=== PATIENT | male | born 1955 | race Caucasian/White ===

== ENCOUNTER 2017-01-01 09:52 | Emergency (ER) | payer OTHER ==
[2017-01-01 11:13] VITALS: BP 122/67
--- NOTE | 2017-01-01 11:23 | CR ---
Foot Comp Min 3V Lt HISTORY: Possible foreign body COMPARISON: None FINDINGS: No radiopaque foreign body seen. No acute fracture. Accessory navicular bone noted.
[2017-01-01] MEDS ORDERED: cefTRIAXone 1 GM Vial IM ONE (12:30)
--- NOTE | 2017-01-01 12:43 | EDM.PDOC ---
ED HPI GENERAL MEDICAL PROBLEM - General Chief Complaint: Lower Extremity Injury/Pain Stated Complaint: LEFT FOOT IS INFECTED Time Seen by Provider: 01/01/17 10:38 Source of Information: Reports: Patient History Limitations: Reports: No Limitations - History of Present Illness INITIAL COMMENTS - FREE TEXT/NARRATIVE: This patient last night was walking barefoot over some wooden pallets. Apparently some Mnire has been spread and then pallets placed on top of it. He got a splinter in his left foot. He really wasn't aware that a splinter but this morning he noticed more pain and some redness to his foot. One of his family members pulled out a large splinter from the foot. He says the redness to the side of the foot and ankle is a little bit decreased now. His last tetanus was greater than 5 years ago. - Related Data Allergies Allergy/AdvReac Type Severity Reaction Status Date / Time sulfamethoxazole Allergy Hives Verified 01/01/17 10:14 [From Bactrim] trimethoprim [From Bactrim] Allergy Hives Verified 01/01/17 10:14 Home Meds: Home Meds NK [No Known Home Meds] 01/01/17 [History] Past Medical History HEENT History: Reports: Impaired Vision Musculoskeletal History: Reports: Fracture - Infectious Disease History Infectious Disease History: Reports: Mumps Social & Family History - Tobacco Use Smoking Status *Q: Former Smoker Years of Tobacco use: 15 Packs/Tins Daily: 1 Used Tobacco, but Quit: Yes Month Tobacco Last Used: 08/11/2006 Second Hand Smoke Exposure: Yes - Caffeine Use Caffeine Use: Reports: Coffee - Recreational Drug Use Recreational Drug Use: No Review of Systems - Review of Systems Review Of Systems: ROS reveals no pertinent complaints other than HPI. ED EXAM, GENERAL - Physical Exam Exam: See Below Exam Limited By: No Limitations General Appearance: Alert, WD/WN Extremities: Other (Exam of the left foot shows a puncture wound to the sole of the foot this is generally in the area of the fifth and fourth metatarsal phalangeal joints. There is just mild erythema to the area. I do see something that looks like some lymphangitis to the medial side of the foot extending slightly above the ankle. That redness had cleared up on subsequent exams. The splinter removed from the foot is approximately 5 or 6 cm long.) Course - Vital Signs Last Recorded V/S: Last Vital Signs Temp 36.8 C 01/01/17 10:25 Pulse 57 L 01/01/17 11:12 Resp 14 01/01/17 11:12 BP 122/67 01/01/17 11:12 Pulse Ox 98 01/01/17 11:12 - Orders/Labs/Meds Meds: Medications Discontinued Medications Generic Name Dose Route Start Last Admin Trade Name Jennifer PRN Reason Stop Dose Admin Ceftriaxone Sodium 1 gm 01/01/17 12:30 01/01/17 12:32 Rocephin IM 01/01/17 12:31 1 gm ONETIME ONE Administration Lidocaine HCl 2.1 ml 01/01/17 12:29 Xylocaine-Mpf 1% INJECT 01/01/17 12:30 ONETIME ONE - Re-Assessments/Exams Free Text/Narrative Re-Assessment/Exam: 01/01/17 15:[address] Tapia the on-call surgeon was contacted that he would be unable to see the patient until late in the afternoon. I did get a hold of Dr. Abrams who came to the emergency department to see the patient. X-ray of the foot showed no obvious foreign body. Dr. Fung will put him on cephalexin 500 mg I think it's twice daily and he wants to see him to return to the emergency department at 7 AM tomorrow where he will see Dr. Tapia. The patient received 1 g of Rocephin IM. A dressing was placed over the foot. Free Text/Narrative Re-Assessment/Exam: 01/01/17 15:39 Examined his chart shows that he didn't receive a tetanus injection and that will be addressed when he returns in the morning. Departure - Departure Time of Disposition: 12:41 Disposition: Home, Self-Care 01 Condition: fair Clinical Impression: Acute foreign body of plantar aspect of foot - Discharge Information Instructions: Sliver Removal, Care After Referrals: PCP,None [Primary Care Provider] - Forms: ED Department Discharge Additional Instructions: Wash with soap and water twice daily and cover with a bandage. Take the antibiotic cephalexin or Keflex as directed by the surgeon. Return to the ER at 7 AM tomorrow. Don't eat or drink anything after midnight tonight because the surgeon may do some surgery on your foot. We'll
== END 2017-01-01 12:55 | disposition home or self-care (01) ==
LOC: JP.ED 09:52 → EDBD 09:52 → JP.ED 12:55
DX: S90.852A Superficial foreign body, left foot, initial encounter (principal); Z87.891 Personal history of nicotine dependence; Z88.2 Allergy status to sulfonamides; Z88.8 Allergy status to other drugs, medicaments and biological substances; X58.XXXA Exposure to other specified factors, initial encounter
CPT/HCPCS: 73630-26-LT; 73630-LT; 96372; 99284-25; J0696

== ENCOUNTER 2017-01-02 07:03 | Emergency (ER) | payer OTHER ==
[2017-01-02 07:22] VITALS: BP 108/71
[2017-01-02] MEDS ORDERED: Diphtheria,Pertussis(Acell),Tetanus Vaccine 0.5 ML SDV IM ONE (07:57)
--- NOTE | 2017-01-03 09:40 | HP ---
HISTORY OF PRESENT ILLNESS: This is a 61-year-old who presented to the emergency room yesterday after having roughly 4-inch wooden splinter go into the left foot. This entered the plantar aspect near the end of the foot, directed more or less in the subcutaneous tissue plane. The sphincter was removed in what appeared to be intact manner. Examination of splinter once again today shows that it did appear to be most likely coming out intact. He has a small puncture wound and he was started on Keflex after giving him the IM dose of antibiotics yesterday. The wound looks clean at this point and there are no signs of significant infection or drainage. The patient is uncertain in terms of his last diphtheria/tetanus vaccination and thinks it may very well be more than 5 years. Given this, the diphtheria/tetanus will be obtained today and we will continue to have him continue the Keflex prescription started by Dr. Rebolledo yesterday. At this point, follow up with Surgery will be p.r.n. He is to give the surgery nurse number of the clinic as well as try to give a call the hospital if he develops any redness, drainage, increasing pain, fever and such. Otherwise, he is instructed to keep the Band-Aid on the site each day until it heals and then follow up with Surgery will be p.r.n. Stephen Tapia MD /[id number]
== END 2017-01-02 08:18 | disposition home or self-care (01) ==
LOC: JP.ED 07:03
DX: S91.342D Puncture wound with foreign body, left foot, subsequent encounter (principal); Z23 Encounter for immunization; W45.8XXD Other foreign body or object entering through skin, subsequent encounter
CPT/HCPCS: 90471; 90715; 99282; 99283-25